=== PATIENT | male | born 1945 | race Caucasian/White ===

== ENCOUNTER 2018-09-27 15:29 | Outpatient (CLI) | payer MEDICARE, BC ==
[2018-09-27 16:59] LABS: #Basophils 0.1 thou/uL (0.0-0.2); #Eosinphils 0.2 thou/uL (0.0-0.7); #Lymphocytes 2.8 thou/uL (1.20-3.40); #Monocytes 0.7 thou/uL (0.11-0.59); #Neutrophils 5.6 thou/uL (1.40-6.50); %Basophils 0.6 % (0.0-1.0); %Eosinophils 2.3 % (0.0-10.0); %Lymphocytes 30.3 % (21.0-51.0); %Monocytes 7.1 % (0.0-10.0); %Neutrophils 59.7 % (42.0-75.0); Hemoglobin 12.6 g/dL (14.0-18.0); Mean Corpuscular HGB CONC 31.9 g/dL (32.0-36.0); Mean Corpuscular Hemoglobin 31.2 pg (27.0-31.0); Mean Corpuscular Volume 97.9 fL (78.0-98.0); Mean Platelet Volume 6.5 fL (7.4-10.4); Platelet Count 250 thou/uL (130-400); RBC Distribution Width 11.2 % (11.5-14.5); Red Blood Cell (RBC) Count 4.04 mill/uL (4.70-6.10); White Blood Cell (WBC) Count 9.3 thou/uL (4.8-10.8)
[2018-09-27 17:31] LABS: ALT (SGPT) 16 U/L (8-55); AST (SGOT) 17 U/L (5-34); Albumin 4.4 g/dL (3.4-4.8); Alkaline Phosphatase 67 U/L (40-150); Anion Gap 15 mmol/L (10-20); BUN (Urea Nitrogen) 17 mg/dL (8.4-25.7); Bilirubin, Total 0.6 mg/dL (0.2-1.2); Calc. Creatinine Clearance 0 mL/min (70-130); Calcium 9.8 mg/dL (7.8-10.44); Carbon Dioxide 24 mmol/L (23-31); Chloride 103 mmol/L (98-107); Estimated GFR-MDRD 66; Globulin 3.2 g/dL (2.4-3.5); Glucose 89 mg/dL (83-110); Potassium 3.6 mmol/L (3.5-5.1); Protein, Total 7.6 g/dL (5.8-8.1); Sodium 138 mmol/L (136-145)
== END 2018-09-27 15:30 | disposition home or self-care (01) ==
LOC: LABBT 15:29
PROVIDERS: ATTEND Internal Medicine Cardiovascular Disease
DX: Z01.812 Encounter for preprocedural laboratory examination (principal); R94.39 Abnormal result of other cardiovascular function study
CPT/HCPCS: 80053; 85025

== ENCOUNTER 2018-09-29 05:50 | Inpatient (IN) | payer MEDICARE, BC ==
[2018-09-29] MEDS ORDERED: Lidocaine 1% (PF) 30 ML VIAL ONE (06:36)
[2018-09-29] MEDS ORDERED: Heparin 0 ML ONE (06:36)
[2018-09-29] MEDS ORDERED: Midazolam HCl 2 mg/2 ml Vial ONE (07:03)
[2018-09-29] MEDS ORDERED: Fentanyl 100 MCG/2 ML VIAL ONE (07:03)
[2018-09-29] MEDS ORDERED: HYDROcodone/Acetaminophen 5/325 mg Tablet ONE (08:19)
[2018-09-29] MEDS ORDERED: Nitroglycerin 2% Ointment 1 INCH/1 GM Packet ONE (08:20)
[2018-09-29] MEDS ORDERED: Acetaminophen/Codeine 30-300mg Tablet PO PRN ×2 (08:44)
[2018-09-29] MEDS ORDERED: Nitroglycerin 0.4 MG TAB (25 Tab Bottle) SL PRN (08:44)
[2018-09-29] MEDS ORDERED: Sodium Chloride 0.9% 1,000 ML IV SCH (08:44)
[2018-09-29] MEDS ORDERED: Nitroglycerin 2% Ointment 1 INCH/1 GM Packet TOP SCH (08:45)
[2018-09-29] MEDS ORDERED: ALPRAZolam 0.25 MG TAB PO PRN (08:47)
[2018-09-29] MEDS ORDERED: Fluticasone Propionate Nasal Spray 16 gm Bottle NASAL PRN (08:49)
[2018-09-29] MEDS ORDERED: Nitroglycerin 0.4 MG TAB 1 EACH SL PRN (08:51)
[2018-09-29] MEDS ORDERED: Ascorbic Acid 500 mg Chewable Tablet PO SCH (09:00)
[2018-09-29] MEDS ORDERED: Aspirin 81 mg Enteric Coated Tablet PO SCH (09:00)
[2018-09-29] MEDS ORDERED: Sodium Chloride 0.9% 500 ML BAG IVPB PRN (09:15)
[2018-09-29] MEDS: Lisinopril 10 MG TAB PO SCH (10:05)
[2018-09-29] MEDS ORDERED: Iopamidol 370 76% 100 ML VIAL ONE (10:26)
--- NOTE | 2018-09-29 13:19 | CON ---
DATE OF CONSULTATION: HISTORY OF PRESENT ILLNESS: This is a 72-year-old gentleman with an episode of exertional chest tightness that was followed with a stress test by Dr. Foster, it was abnormal. He was begun on Plavix; however, only took the Plavix for about 4-5 days before this was stopped by Dr. Barba. He had a history of hypertension and then felt lightheaded 1 day when he got up and otherwise has had no symptoms. PAST MEDICAL HISTORY: Includes hypertension. SOCIAL HISTORY: He is a nonsmoker. He is , and I have operated on his earlier this year with a stage III lung cancer The patient is retired from [email or web address] at age 56. He lives in [place] and plays sporadic golf, but stays busy outside. PAST SURGICAL HISTORY: Includes tonsillectomy, cataracts, and skin cancer removals. MEDICATIONS: Include, 1. Xanax 0.25 daily. 2. Lisinopril 10 once a day. 3. Atorvastatin 40 a day. 4. Protonix 40 a day. 5. Aspirin 81 a day. 6. Metoprolol ER 50 daily. 7. Vitamin supplements. ALLERGIES: TO PENICILLIN. REVIEW OF SYSTEMS: He has had no history of TIA or stroke. He has no nocturia. PHYSICAL EXAMINATION: GENERAL: He is alert and cooperative gentleman with a recorded weight of 181 pounds. VITAL SIGNS: Height 5 feet 9 inches. NECK: No carotid bruits. LUNGS: Clear to auscultation. CARDIAC: Distant heart sounds. No murmurs. ABDOMEN: Full, nontender. No aneurysm. EXTREMITIES: He has a palpable posterior tibial pulse bilaterally with no peripheral edema. Cardiac catheterization reveals a high-grade LAD lesion proximally with a smaller LAD and a larger second diagonal that maybe the preferred target site. He has a circumflex system that has about a 60% to 70% stenosis prior to 2 OM branches, and he has a mid right coronary stenosis of about 90% with some calcification in his distal right. ASSESSMENT AND PLAN: Potential targets would probably be the posterior descending artery, the OM, and either the LAD or the larger second diagonal. The patient has been off his Plavix for about 3 days and only took it for about 5 days prior to that. I have gone over the procedure, risks, complications and expectations, and informed consent has been obtained. Job ID: [id number] [facility]
[2018-09-29] MEDS ORDERED: Communication Order-Pharmacy FS SCH (13:30)
[2018-09-29] MEDS ORDERED: Atorvastatin Calcium 40 MG TAB PO SCH (21:00)
[2018-09-30] MEDS ORDERED: Clindamycin/D5W 900 MG in Premix Bag 1 BAG IVPB SCH (02:00)
[2018-09-30] MEDS: Lisinopril 10 MG TAB PO SCH (05:51)
[2018-09-30] MEDS ORDERED: Fentanyl 250 MCG/5 ML VIAL ONE (06:19)
[2018-09-30] MEDS ORDERED: Midazolam HCl 5 mg/5 ml Vial ONE (06:19)
[2018-09-30] MEDS ORDERED: Phenylephrine HCL 10 MG/ML VIAL ONE ×2 (06:41→10:56)
[2018-09-30] MEDS ORDERED: Heparin 10,000 UNITS/1 ML VIAL 30,000 UNITS in Sodium Chloride 0.9% 1,000 ML FS SCH (07:00)
[2018-09-30] MEDS ORDERED: Clindamycin/D5W 900 mg/50 ml Premix Bag ONE (07:14)
[2018-09-30] MEDS ORDERED: Levofloxacin 500 mg/D5W 100 ml Premix Bag ONE (07:14)
[2018-09-30 08:08] VITALS: BMI 26.2
[2018-09-30] MEDS ORDERED: Albumin 5% 500 ML ONE ×2 (09:49→10:16)
[2018-09-30] MEDS ORDERED: Insulin Regular 300 UNITS/3 ML VIAL ONE (10:18)
[2018-09-30 11:36] LABS: #Eosinphils 0.1 thou/uL (0.0-0.7); #Lymphocytes 1.5 thou/uL (1.20-3.40); #Monocytes 0.1 thou/uL (0.11-0.59); %Basophils 0.1 % (0.0-1.0); %Eosinophils 0.8 % (0.0-10.0); %Lymphocytes 8.6 % (21.0-51.0); %Monocytes 0.8 % (0.0-10.0); %Neutrophils 89.7 % (42.0-75.0); Hemoglobin 8.6 g/dL (14.0-18.0); Mean Corpuscular HGB CONC 35.3 g/dL (32.0-36.0); Mean Corpuscular Hemoglobin 33.7 pg (27.0-31.0); Mean Corpuscular Volume 95.5 fL (78.0-98.0); Mean Platelet Volume 6.4 fL (7.4-10.4); Platelet Count 159 thou/uL (130-400); Red Blood Cell (RBC) Count 2.55 mill/uL (4.70-6.10); White Blood Cell (WBC) Count 17.8 thou/uL (4.8-10.8)
[2018-09-30] MEDS ORDERED: Magnesium 2 GM/50 ML 2 GM in Premix Bag 1 BAG IVPB SCH (11:39)
[2018-09-30] MEDS ORDERED: Hetastarch 6% 500 ML 500 ML IVPB PRN (11:39)
[2018-09-30] MEDS ORDERED: Acetaminophen 325 MG TAB PO PRN (11:39)
[2018-09-30] MEDS ORDERED: hydrALAZINE 20 MG/ML VIAL SLOW IVP PRN (11:39)
[2018-09-30] MEDS ORDERED: Fentanyl 100 MCG/2 ML VIAL SLOW IVP PRN (11:39)
[2018-09-30] MEDS ORDERED: niCARdipine 25 MG in Sodium Chloride 0.9% 250 ML 250 ML IVPB PRN (11:39)
[2018-09-30] MEDS ORDERED: Bisacodyl 10 MG SUPP PR PRN (11:39)
[2018-09-30] MEDS ORDERED: Promethazine HCl 25 MG/ML VIAL IM PRN (11:39)
[2018-09-30] MEDS ORDERED: Bisacodyl 5 MG TAB PO PRN (11:39)
[2018-09-30] MEDS ORDERED: Phenylephrine 10 MG/NS 250 ML 250 ML IVPB PRN (11:39)
[2018-09-30] MEDS ORDERED: Mag-Al 1200 mg/1200 mg/30 ML UDCUP PO PRN (11:39)
[2018-09-30] MEDS ORDERED: DOPamine 400 MG/D5W 250 ML 250 ML IVPB PRN (11:39)
[2018-09-30] MEDS ORDERED: Nitroglycerin 50 MG/250 ML BOT 250 ML IVPB PRN (11:39)
[2018-09-30] MEDS ORDERED: Post-Op Insulin Drip Protocol IVPB ONE (11:39)
[2018-09-30 11:43] LABS: INR-International Normal Ratio 1.7; Prothrombin Time 20.1 SEC (12.0-14.7)
[2018-09-30 11:44] LABS: PTT 33.1 SEC (22.9-36.1)
[2018-09-30 11:58] LABS: Actual Bicarbonate (HCO3a) 19.8 mEq/L (22-28); Base Excess (BEa) -5.5 mEq/L (-2.0 to +3.0); CO2 Tension 37.8 mmHg (35.0-45.0); Calcium, Ionized 0.95 mmol/L (1.12-1.30); Carboxyhemoglobin (COHb) 0.4 gm% (0.0-3.0); Hemoglobin (Hb) 10.1 g/dL (14.0-18.0); O2 Tension (PaO2) 166.7 mmHg (> 70.0); Potassium - ABG Lab 3.43 mmol/L (3.70-5.30); pH, Arterial 7.34 (7.35-7.45)
[2018-09-30] MEDS ORDERED: HUMULIN R 100 UNITS in Sodium Chloride 0.9% 100 ML IVPB SCH (11:58)
[2018-09-30] MEDS ORDERED: Dextrose 50% Abboject 50 ML SYRINGE SLOW IVP PRN (11:58)
[2018-09-30] MEDS ORDERED: Dextrose 5% in Water 1,000 ML IV PRN (11:58)
[2018-09-30] MEDS ORDERED: Insulin Regular 300 UNITS/3 ML VIAL SC PRN (11:58)
[2018-09-30 11:59] LABS: Puncture Site ALINE
[2018-09-30 12:09] LABS: Hemoglobin 9.9 g/dL (14.0-18.0); Mean Corpuscular HGB CONC 35.1 g/dL (32.0-36.0); Mean Corpuscular Hemoglobin 33.9 pg (27.0-31.0); Mean Corpuscular Volume 96.8 fL (78.0-98.0); Platelet Count 205 thou/uL (130-400); RBC Distribution Width 11.4 % (11.5-14.5); Red Blood Cell (RBC) Count 2.92 mill/uL (4.70-6.10); White Blood Cell (WBC) Count 21.3 thou/uL (4.8-10.8)
[2018-09-30 12:12] LABS: INR-International Normal Ratio 1.6; PTT 32.6 SEC (22.9-36.1); Prothrombin Time 18.8 SEC (12.0-14.7)
[2018-09-30] MEDS: Lactated Ringer's 1,000 ML IV SCH (12:20)
[2018-09-30] MEDS: Ketorolac Tromethamine 30 MG/ML VIAL IVP SCH ×3 (12:20→23:29)
[2018-09-30 12:29] LABS: Anion Gap 10 mmol/L (10-20); BUN (Urea Nitrogen) 17 mg/dL (8.4-25.7); Calc. Creatinine Clearance 89 mL/min (70-130); Calcium 6.8 mg/dL (7.8-10.44); Carbon Dioxide 22 mmol/L (23-31); Chloride 109 mmol/L (98-107); Estimated GFR-MDRD 90; Glucose 140 mg/dL (83-110); Potassium 3.4 mmol/L (3.5-5.1); Sodium 138 mmol/L (136-145)
[2018-09-30 12:33] LABS: Band 15 % (5-11); Eosinophils 1 % (0-10); Lymphocytes 6 % (21-51); MDiff Complete? YES; Metamyelocyte 3 % (0-0); Monocytes 4 % (0-10); Neutrophil 70 % (42-75); Platelet Morphology Comment Appears Adequate; Polychromasia SLIGHT = 2-3 cells (100X) (0-2/hpf); Reactive Lymphocytes 1 % (0-10)
[2018-09-30] MEDS: Potassium Chloride 20 MEQ/100 ML PREMIX BAG IVPB PRN (13:19)
--- NOTE | 2018-09-30 13:36 | RAD ---
PORTABLE SUPINE CHEST: Date: 09/30/18 HISTORY: Postop sternotomy follow-up. FINDINGS/IMPRESSION: ET tube has tip just above salvador. Central line appears adequately positioned overlying the SVC. Mild cardiomegaly. Mild vascular engorgement. The lung del rosario appear clear. Postop sternotomy changes. POS: [facility]
[2018-09-30] MEDS: Clindamycin/D5W 900 MG in Premix Bag 1 BAG IVPB SCH ×2 (14:10→20:01)
[2018-09-30 14:40] LABS: Actual Bicarbonate (HCO3a) 19.8 mEq/L (22-28); Base Excess (BEa) -4.8 mEq/L (-2.0 to +3.0); CO2 Tension 34.5 mmHg (35.0-45.0); Calcium, Ionized 0.98 mmol/L (1.12-1.30); Carboxyhemoglobin (COHb) 0.3 gm% (0.0-3.0); Hemoglobin (Hb) 10.2 g/dL (14.0-18.0); O2 Tension (PaO2) 97.4 mmHg (> 70.0); Potassium - ABG Lab 3.81 mmol/L (3.70-5.30); pH, Arterial 7.38 (7.35-7.45)
[2018-09-30 14:42] LABS: ALV-art Gradient 144.675 (0-20); Puncture Site ALINE
[2018-09-30] MEDS: Ondansetron PF 4 MG/2 ML Vial IVP PRN (15:21)
[2018-09-30] MEDS ORDERED: Heparin 5,000 UNITS/ML VIAL ONE (15:41)
[2018-09-30] MEDS ORDERED: ePHEDrine 50 MG/ML VIAL ONE (15:41)
[2018-09-30] MEDS ORDERED: Lidocaine 2% PF 100 mg/5 ml Syringe ONE (15:41)
[2018-09-30] MEDS ORDERED: Rocuronium Bromide 10 MG/ML (10ML VIAL) ONE (15:41)
[2018-09-30] MEDS ORDERED: EPINEPHrine 1 MG/ML AMP ONE (15:41)
[2018-09-30] MEDS ORDERED: Aminocaproic Acid 5 GM/20 ML VIAL ONE (15:41)
[2018-09-30] MEDS ORDERED: Potassium Chloride 60 MEQ/30 ML VIAL ONE (15:41)
[2018-09-30] MEDS ORDERED: Protamine Sulfate 250 MG/25 ML VIAL ONE (15:41)
[2018-09-30] MEDS ORDERED: Cardioplegic Soln 1,000 ML BAG ONE (15:41)
[2018-09-30] MEDS ORDERED: Thrombin 5000 UNITS/5 ML VIAL ONE (15:41)
[2018-09-30] MEDS ORDERED: PROPOFOL 200 MG/20 ML VIAL ONE (15:41)
[2018-09-30] MEDS ORDERED: Calcium Chloride 1 GM/10 ML Abboject SYRINGE ONE (15:41)
[2018-09-30] MEDS ORDERED: Heparin 30,000 units/30 ml VIAL ONE (15:41)
[2018-09-30] MEDS ORDERED: Papaverine 60 MG/2 ML VIAL ONE (15:41)
[2018-09-30] MEDS ORDERED: Magnesium 5 GM/10 ML VIAL ONE (15:41)
[2018-09-30] MEDS ORDERED: Mannitol 12.5 GM/50 ML ONE (15:41)
[2018-09-30] MEDS ORDERED: Sodium Bicarb 50 MEQ/50 ML VIAL ONE (15:41)
[2018-09-30] MEDS ORDERED: PHENYLEPHRINE-NS 100 MCG/ML 10 ML SYRINGE ONE (15:41)
--- NOTE | 2018-09-30 15:43 | PRG ---
DATE OF SERVICE: 09/30/2018 SUBJECTIVE: Mr. Rivas is doing well postoperatively. He is on intravenous dopamine. He is receiving fluid. He is awake and alert. He is extubated. OBJECTIVE: VITAL SIGNS: Blood pressure is in the 100 to 110 systolic range. LUNGS: Clear. CARDIAC: Normal S1 and normal S2. ABDOMEN: Soft, nontender. EXTREMITIES: No edema. ASSESSMENT: 1. Status post bypass surgery, doing well. 2. History of hypertension. 3. Hypercholesterolemia. PLAN: 1. Aspirin. 2. Statins. 3. Beta blockers as tolerated. Job ID: [id number]
[2018-09-30] MEDS: Fentanyl 100 MCG/2 ML VIAL SLOW IVP PRN (15:48)
--- NOTE | 2018-09-30 15:52 | OP ---
DATE OF PROCEDURE: 09/30/2018 PREOPERATIVE DIAGNOSIS: Coronary artery disease. PROCEDURE PERFORMED: Coronary artery bypass graft x4, left internal mammary artery to the left anterior descending artery, saphenous vein to a 1.25 to 1.5 mm right coronary artery just past the posterior descending artery, saphenous vein good quality to a 1.0 mm obtuse margin 2 and a 1.5 mm obtuse margin 1, left internal mammary artery to a 1.25 to 1.5 mm left anterior descending artery. SANDFILL OPERATOR: Kostas Ledezma MD TRANSFUSION: Two platelet packs, one packed red cells. DESCRIPTION OF PROCEDURE: After adequate anesthesia had been obtained, the patient was prepped and draped, and Dr. Ledezma did an endovascular vein harvest of the left leg while I performed a median sternotomy. Left internal mammary artery was harvested and the patient was heparinized. Mammary was divided distally, passed posterior to the thymus gland, and the aorta and right atrium were cannulated. Cardiopulmonary bypass was begun. Vessels were inspected for grafting. The aorta was cross-clamped and after a liter of cold blood cardioplegia. The right coronary artery was palpated and examined distally and would not compress with a pickup suggesting severe disease. The PDA was too small to open and so the right coronary artery was opened just past the PDA, extended just to the PDA and a saphenous vein anastomosis completed here. Following this, the circumflex system was examined and the vessel was chosen to be opened; however, was very small and after anastomosis here, a 1 mm probe was all that would pass. Further search revealed an adjacent OM that was opened and was a better quality vessel at 1.5 to 2 mm and another saphenous vein end-to-side anastomosis completed here. The first vein graft to the OM was then anastomosed to the side of the vein graft to the second obtuse marginal, anastomosed. The CHANG was then anastomosed to the LAD. Following which, the cross-clamp was removed and the partial occluding clamp placed and two vein anastomosis performed on the aortic root and marked with rings. Proximal and distal anastomosis were hemostatic. The patient was then weaned from cardiopulmonary bypass. Cannula was removed and the aortic cannulation secured with a Prolene. After protamine administration, there was still significant bleeding and a platelet pack was given. Mediastinal and left pleural drain was placed, following which there was still excessive bleeding, and as best I could examine, I could not find any bleeding from suture lines just blood accumulating. Sternum was then closed with #7 interrupted wire using vancomycin paste on the sternal edges, platelet rich blood and platelet poor plasma while a second platelet pack was given. Subcutaneous tissue and skin were closed in layers. The patient's lungs were fairly hyperinflated, and the patient is to be taken to the ICU in guarded condition. Job ID: [id number]
[2018-09-30 18:06] LABS: Potassium 4.1 mmol/L (3.5-5.1)
[2018-09-30] MEDS: HYDROcodone/Acetaminophen 5/325 mg Tablet PO PRN (20:05)
[2018-09-30] MEDS ORDERED: Famotidine/PF 20 mg/2ml Vial SLOW IVP SCH (21:00)
[2018-09-30 23:26] LABS: Hemoglobin 8.5 g/dL (14.0-18.0)
[2018-10-01 00:30] LABS: PTT Greater than 250.0 SEC (22.9-36.1)
[2018-10-01] MEDS: HYDROcodone/Acetaminophen 5/325 mg Tablet PO PRN ×4 (00:52→15:20)
[2018-10-01] MEDS ORDERED: Protamine Sulfate 50 MG/5 ML VIAL SLOW IVP SCH (01:00)
[2018-10-01] MEDS: Lactated Ringer's 1,000 ML IV SCH (01:16)
[2018-10-01] MEDS: Clindamycin/D5W 900 MG in Premix Bag 1 BAG IVPB SCH ×2 (01:16→07:42)
[2018-10-01] MEDS: Ketorolac Tromethamine 30 MG/ML VIAL IVP SCH ×3 (05:32→18:34)
[2018-10-01 06:00] LABS: #Monocytes 0.9 thou/uL (0.11-0.59); #Neutrophils 10.5 thou/uL (1.40-6.50); %Basophils 0.3 % (0.0-1.0); %Eosinophils 0.3 % (0.0-10.0); %Lymphocytes 7.7 % (21.0-51.0); %Monocytes 7.4 % (0.0-10.0); %Neutrophils 84.4 % (42.0-75.0); Hemoglobin 9.2 g/dL (14.0-18.0); Mean Corpuscular HGB CONC 34.6 g/dL (32.0-36.0); Mean Corpuscular Hemoglobin 33.5 pg (27.0-31.0); Mean Platelet Volume 6.7 fL (7.4-10.4); Platelet Count 204 thou/uL (130-400); RBC Distribution Width 11.7 % (11.5-14.5); Red Blood Cell (RBC) Count 2.74 mill/uL (4.70-6.10); White Blood Cell (WBC) Count 12.4 thou/uL (4.8-10.8)
[2018-10-01 06:20] LABS: Anion Gap 11 mmol/L (10-20); BUN (Urea Nitrogen) 18 mg/dL (8.4-25.7); Calc. Creatinine Clearance 73 mL/min (70-130); Calcium 7.1 mg/dL (7.8-10.44); Carbon Dioxide 19 mmol/L (23-31); Chloride 112 mmol/L (98-107); Estimated GFR-MDRD 72; Glucose 124 mg/dL (83-110); Potassium 3.9 mmol/L (3.5-5.1); Sodium 138 mmol/L (136-145)
[2018-10-01 07:34] LABS: INR-International Normal Ratio 1.6; PTT 37.2 SEC (22.9-36.1); Prothrombin Time 18.8 SEC (12.0-14.7)
[2018-10-01] MEDS: Fentanyl 100 MCG/2 ML VIAL SLOW IVP PRN ×3 (07:42→18:36)
[2018-10-01] MEDS: Aspirin Chewable 81 MG TAB PO SCH ×2 (08:03→08:05)
--- NOTE | 2018-10-01 08:20 | RAD ---
CHEST 1 VIEW: Date: 10/01/18 INDICATOIN: Status post open heart surgery. COMPARISON: Prior exam dated 09/30/18. FINDINGS: The patient has been intervally extubated. Mediastinal drain overlies the midline. Right-sided subcla vian central venous catheter is unchanged. Left-sided thoracostomy tube persists. No pneumothorax is evident. Cardiomegaly and pulmonary vascular congestion are similar appearing. There are small bilate ral pleural effusions. No acute osseous abnormality is evident. IMPRESSION: 1. Cardiomegaly, pulmonary vascular congestion, and small bilateral pleural effusions suggest mild C HF. 2. Interval extubation. 3. Stable right-sided subclavian central venous catheter, midline mediastinal drain, and left-sided thoracostomy tube. POS: [facility]
[2018-10-01] MEDS ORDERED: Hetastarch 6% 500 ML 0 ML ONE (09:46)
[2018-10-01] MEDS: Ondansetron PF 4 MG/2 ML Vial IVP PRN (15:11)
[2018-10-01 16:08] LABS: Actual Bicarbonate (HCO3a) 20.6 mEq/L (22-28); Base Excess (BEa) -4.2 mEq/L (-2.0 to +3.0); CO2 Tension 36.3 mmHg (35.0-45.0); Calcium, Ionized 0.99 mmol/L (1.12-1.30); Carboxyhemoglobin (COHb) 1.4 gm% (0.0-3.0); Hemoglobin (Hb) 9.2 g/dL (14.0-18.0); O2 Tension (PaO2) 49.4 mmHg (> 70.0); Potassium - ABG Lab 4.16 mmol/L (3.70-5.30); pH, Arterial 7.37 (7.35-7.45)
[2018-10-01 16:09] LABS: Puncture Site ALINE
[2018-10-01 16:10] LABS: ALV-art Gradient 161.905 (0-20)
[2018-10-01] MEDS ORDERED: Furosemide 40 MG/4 ML VIAL SLOW IVP SCH (16:15)
--- NOTE | 2018-10-01 17:06 | RAD ---
Chest one view HISTORY: Dyspnea. Hypoxia. COMPARISON: Earlier exam on the same date. FINDINGS: Cardiac silhouette is magnified and enlarged. Pulmonary vasculature remains engorged. Bibas ilar atelectasis and patchy infiltrate are similar in appearance. Mediastinum is midline with postoperative changes. Lines and tubes are unchanged in position. No evidence of pneumothorax. IMPRESSION: Stable postoperative appearance of the chest.
[2018-10-01 18:04] LABS: Hemoglobin 9.9 g/dL (14.0-18.0)
[2018-10-01] MEDS: ALPRAZolam 0.25 MG TAB PO PRN (21:45)
[2018-10-01] MEDS: Atorvastatin Calcium 40 MG TAB PO SCH (21:45)
[2018-10-02] MEDS: Ketorolac Tromethamine 30 MG/ML VIAL IVP SCH ×5 (00:07→23:54)
[2018-10-02] MEDS: ALPRAZolam 0.25 MG TAB PO PRN ×3 (02:49→21:20)
[2018-10-02] MEDS ORDERED: DOPamine 400 MG/D5W 250 ML 250 ML IVPB SCH (04:00)
[2018-10-02 04:50] LABS: #Eosinphils 0.2 thou/uL (0.0-0.7); #Lymphocytes 1.5 thou/uL (1.20-3.40); #Neutrophils 10.9 thou/uL (1.40-6.50); %Basophils 0.3 % (0.0-1.0); %Eosinophils 1.2 % (0.0-10.0); %Lymphocytes 10.8 % (21.0-51.0); %Monocytes 7.7 % (0.0-10.0); Hemoglobin 9.5 g/dL (14.0-18.0); Mean Corpuscular HGB CONC 34.6 g/dL (32.0-36.0); Mean Corpuscular Hemoglobin 33.2 pg (27.0-31.0); Mean Corpuscular Volume 95.9 fL (78.0-98.0); Mean Platelet Volume 6.5 fL (7.4-10.4); Platelet Count 144 thou/uL (130-400); RBC Distribution Width 12.9 % (11.5-14.5); Red Blood Cell (RBC) Count 2.85 mill/uL (4.70-6.10); White Blood Cell (WBC) Count 13.6 thou/uL (4.8-10.8)
[2018-10-02 05:08] LABS: Anion Gap 10 mmol/L (10-20); BUN (Urea Nitrogen) 20 mg/dL (8.4-25.7); Calc. Creatinine Clearance 0 mL/min (70-130); Calcium 7.8 mg/dL (7.8-10.44); Carbon Dioxide 22 mmol/L (23-31); Chloride 109 mmol/L (98-107); Estimated GFR-MDRD 74; Glucose 122 mg/dL (83-110); Potassium 3.8 mmol/L (3.5-5.1); Sodium 137 mmol/L (136-145)
[2018-10-02] MEDS: Potassium Chloride 20 MEQ/100 ML PREMIX BAG IVPB PRN (06:42)
[2018-10-02] MEDS: HYDROcodone/Acetaminophen 5/325 mg Tablet PO PRN ×3 (08:04→21:19)
[2018-10-02] MEDS: Aspirin Chewable 81 MG TAB PO SCH (08:05)
[2018-10-02] MEDS ORDERED: Metolazone 5 MG TAB PO SCH (10:00)
[2018-10-02] MEDS ORDERED: Furosemide 40 MG/4 ML VIAL SLOW IVP SCH (10:00)
--- NOTE | 2018-10-02 10:37 | RAD ---
CHEST 1 VIEW: Date: 10/02/18 INDICATION: Status post open heart surgery. COMPARISON: Prior exam dated 10/01/18. FINDINGS: Cardiac silhouette remains enlarged. There is worsening pulmonary vascular congestion and bilateral p erihilar edema. There are small bilateral pleural effusions which are stable. Left-sided thoracostomy tube, right subclavian central venous catheter, and mediastinal drain are similar appearing. No pneu mothorax is evident. IMPRESSION: Worsening pulmonary vascular congestion and perihilar edema. POS: [facility]
[2018-10-02] MEDS: Guaifenesin DM 100-10/5 ML UDCUP PO PRN ×2 (12:21→21:19)
[2018-10-02] MEDS: Atorvastatin Calcium 40 MG TAB PO SCH (21:18)
[2018-10-03 04:34] LABS: #Eosinphils 0.3 thou/uL (0.0-0.7); #Lymphocytes 1.3 thou/uL (1.20-3.40); #Monocytes 0.9 thou/uL (0.11-0.59); #Neutrophils 9.9 thou/uL (1.40-6.50); %Basophils 0.3 % (0.0-1.0); %Eosinophils 2.3 % (0.0-10.0); %Lymphocytes 10.6 % (21.0-51.0); %Monocytes 6.8 % (0.0-10.0); Hemoglobin 9.3 g/dL (14.0-18.0); Mean Corpuscular HGB CONC 34.1 g/dL (32.0-36.0); Mean Corpuscular Hemoglobin 33.1 pg (27.0-31.0); Platelet Count 166 thou/uL (130-400); RBC Distribution Width 12.9 % (11.5-14.5); White Blood Cell (WBC) Count 12.4 thou/uL (4.8-10.8)
[2018-10-03 04:49] LABS: Anion Gap 11 mmol/L (10-20); BUN (Urea Nitrogen) 26 mg/dL (8.4-25.7); Calc. Creatinine Clearance 70 mL/min (70-130); Calcium 8.2 mg/dL (7.8-10.44); Carbon Dioxide 25 mmol/L (23-31); Chloride 105 mmol/L (98-107); Estimated GFR-MDRD 61; Glucose 114 mg/dL (83-110); Potassium 3.7 mmol/L (3.5-5.1); Sodium 137 mmol/L (136-145)
[2018-10-03] MEDS: Ketorolac Tromethamine 30 MG/ML VIAL IVP SCH (06:35)
[2018-10-03] MEDS ORDERED: Mineral Oil ENEMA PR PRN (06:40)
[2018-10-03] MEDS ORDERED: Fentanyl 100 MCG/2 ML VIAL SLOW IVP PRN (06:40)
[2018-10-03] MEDS ORDERED: Mag-Al 1200 mg/1200 mg/30 ML UDCUP PO PRN (06:40)
[2018-10-03] MEDS ORDERED: Nitroglycerin 0.4 MG TAB (25 Tab Bottle) SL PRN (06:40)
[2018-10-03] MEDS ORDERED: Ondansetron PF 4 MG/2 ML Vial IVP PRN (06:40)
[2018-10-03] MEDS ORDERED: Acetaminophen 325 MG TAB PO PRN (06:40)
[2018-10-03] MEDS ORDERED: Bisacodyl 5 MG TAB PO PRN (06:40)
[2018-10-03] MEDS ORDERED: Bisacodyl 10 MG SUPP PR PRN (06:40)
[2018-10-03] MEDS ORDERED: Guaifenesin DM 100-10/5 ML UDCUP PO PRN (06:40)
--- NOTE | 2018-10-03 07:49 | RAD ---
EXAM: Single view of the chest HISTORY: Status post open heart surgery COMPARISON: 10/02/2018 FINDINGS: Single view of the chest shows an enlarged but stable cardiomediastinal silhouette. The pa tient is status post CABG. The lines and tubes are unchanged in position. There is a moderate right pleural effusion. Developing airspace opacity projects over the right upper lobe. The bones are unremarkable. IMPRESSION: 1. Right pleural effusion 2. Developing right upper lobe infiltrate
--- NOTE | 2018-10-03 09:00 | EKG ---
Test Reason : POST CABG Blood Pressure : / mmHG Vent. Rate : 074 BPM Atrial Rate : 074 BPM P-R Int : 182 ms QRS Dur : 126 ms QT Int : 484 ms P-R-T Axes : 071 062 045 degrees QTc Int : 537 ms Normal sinus rhythm Right bundle branch block Abnormal ECG When compared with ECG of 29-MAR-2007 07:23, Right bundle branch block is now Present Confirmed by DR. Chester CARPIO ([id number]) on 10/03/2018 8:59:24 AM Referred By: ZACKERY Confirmed By:DR. Chester CARPIO
[2018-10-03] MEDS ORDERED: Hetastarch 6% 500 ML 0 ML ONE (09:02)
[2018-10-03] MEDS ORDERED: D5 1/2 NS w/20 mEq KCL 0 ML ONE (09:04)
[2018-10-03] MEDS: Aspirin 325 mg Enteric Coated Tablet PO SCH (09:16)
[2018-10-03] MEDS: Furosemide 40 MG TAB PO SCH (09:17)
[2018-10-03] MEDS: Polyethylene Glycol 3350 17 GM Packet PO SCH (09:17)
--- NOTE | 2018-10-03 09:55 | PRG ---
DATE OF SERVICE: 10/03/2018 SUBJECTIVE: Mr. Rivas is doing well. He is awake and alert. He is awaiting a bed out on telemetry. OBJECTIVE: VITAL SIGNS: Blood pressure 105/58, pulse is 76 and sinus. LUNGS: Clear. CARDIAC: Normal S1. Normal S2. ASSESSMENT: 1. Three-vessel coronary artery disease, status post bypass surgery. 2. History of hypertension. PLAN: 1. Continue supportive care including aspirin, oral furosemide. 2. Resume statins. 3. Cardiac rehab. Job ID: [id number]
[2018-10-03] MEDS: HYDROcodone/Acetaminophen 5/325 mg Tablet PO PRN (15:22)
[2018-10-03] MEDS: ALPRAZolam 0.25 MG TAB PO PRN (21:04)
[2018-10-03] MEDS: Atorvastatin Calcium 40 MG TAB PO SCH (21:04)
[2018-10-04] MEDS: ALPRAZolam 0.25 MG TAB PO PRN ×2 (03:17→22:46)
[2018-10-04] MEDS: Aspirin 325 mg Enteric Coated Tablet PO SCH (09:16)
[2018-10-04] MEDS: Polyethylene Glycol 3350 17 GM Packet PO SCH (09:17)
[2018-10-04] MEDS: Furosemide 40 MG TAB PO SCH (09:17)
--- NOTE | 2018-10-04 09:43 | PRG ---
DATE OF SERVICE: 10/04/2018 SUBJECTIVE: Mr. Rivas is sitting up in a chair, feels fine. No angina. OBJECTIVE: VITAL SIGNS: His blood pressure is 117/62, heart rate 76. LUNGS: Clear. CARDIAC: Normal S1, normal S2. ABDOMEN: Soft, nontender. ASSESSMENT: 1. Status post bypass surgery. 2. History of hypertension. 3. History of hypercholesterolemia. PLAN: 1. He is on the statin, furosemide, and aspirin. 2. Start low-dose beta-blockers tomorrow. Job ID: [id number]
[2018-10-04 14:37] LABS: Actual Bicarbonate (HCO3a) 23.4 mEq/L (22-28); Analyzer IN Cardio OR; Base Excess (BEa) -2.7 mEq/L (-2.0 to +3.0); CO2 Tension 47.9 mmHg (35.0-45.0); Calcium, Ionized 0.94 mmol/L (1.12-1.30); Carboxyhemoglobin (COHb) 0.8 gm% (0.0-3.0); Hemoglobin (Hb) 6.7 g/dL (14.0-18.0); O2 Tension (PaO2) 415.9 mmHg (> 70.0); Potassium - ABG Lab 4.34 mmol/L (3.70-5.30); pH, Arterial 7.31 (7.35-7.45)
[2018-10-04 14:37] LABS: Analyzer IN Cardio OR; Base Excess (BEa) -1.8 mEq/L (-2.0 to +3.0); CO2 Tension 45.9 mmHg (35.0-45.0); Calcium, Ionized 0.98 mmol/L (1.12-1.30); Carboxyhemoglobin (COHb) 0.4 gm% (0.0-3.0); Hemoglobin (Hb) 7.7 g/dL (14.0-18.0); Potassium - ABG Lab 4.68 mmol/L (3.70-5.30); pH, Arterial 7.34 (7.35-7.45)
[2018-10-04 14:37] LABS: Actual Bicarbonate (HCO3a) 20.6 mEq/L (22-28); Analyzer IN Cardio OR; Base Excess (BEa) -3.8 mEq/L (-2.0 to +3.0); CO2 Tension 34.1 mmHg (35.0-45.0); Calcium, Ionized 0.91 mmol/L (1.12-1.30); Carboxyhemoglobin (COHb) 0.3 gm% (0.0-3.0); Hemoglobin (Hb) 8.9 g/dL (14.0-18.0); Potassium - ABG Lab 3.42 mmol/L (3.70-5.30)
[2018-10-04 14:38] LABS: O2 Tension (PaO2) 618.1 mmHg (> 70.0); Puncture Site ALINE
[2018-10-04 14:39] LABS: Puncture Site ALINE
[2018-10-04 14:39] LABS: O2 Tension (PaO2) 525.9 mmHg (> 70.0); Puncture Site ALINE
[2018-10-04] MEDS: HYDROcodone/Acetaminophen 5/325 mg Tablet PO PRN (15:23)
[2018-10-04] MEDS ORDERED: Pharmacy to Dose 1 EACH VANCOMYCIN IVPB PRN (16:05)
[2018-10-04] MEDS ORDERED: Aztreonam 2 GM in Sodium Chloride 0.9% 100 ML IVPB SCH (16:15)
[2018-10-04] MEDS ORDERED: Vancomycin HCl 1.5 GM in Sodium Chloride 0.9% 250 ML 300 ML IVPB SCH (16:15)
--- NOTE | 2018-10-04 16:31 | CON ---
DATE OF CONSULTATION: 10/04/2018 SERVICE: Pulmonary Medicine. REASON FOR CONSULTATION: Pleural effusion. HISTORY OF PRESENT ILLNESS: The patient is a 72-year-old white male with past medical history significant for coronary artery disease. He had a cardiac catheterization that identified 3-vessel disease. He was subsequently referred for coronary artery bypass graft. He underwent this intervention on September 30, 2018. He is currently postop day number 4 from that procedure. His chest tube was removed today, but he had a new onset of a pleural effusion on the right as well as a new pulmonary infiltrate that was not previously identified. He did not have any fevers or chills overnight. He is not coughing up any pus or blood. He denies any nausea or vomiting. Otherwise, he is returning to his usual state of health. PAST MEDICAL HISTORY: 1. Coronary artery disease. 2. Hypertension. 3. Gastroesophageal reflux disease.. PAST SURGICAL HISTORY: 1. Coronary artery bypass graft, postop day 4. 2. Tonsillectomy. 3. Cataract surgery. 4. Skin excisions for cancer removal. ALLERGIES: PENICILLIN. MEDICATIONS: List of his inpatient medications was reviewed. No specific med. No specific updates were made at this time other than initiating antibiotics directed and aspiration related organisms. FAMILY HISTORY: Noncontributory. SOCIAL HISTORY: Negative for alcohol, tobacco, or illicit drug use. He is retired from [employer]. He has no known lung problems. REVIEW OF SYSTEMS: General; head, eyes, ears, nose, and throat; cardiovascular, respiratory, GI, , musculoskeletal, neurologic, and skin are negative, except as mentioned in the HPI. PHYSICAL EXAMINATION: VITAL SIGNS: Afebrile, pulse 90, blood pressure 137/69, respirations 19, saturation 100% on 2 L nasal cannula. GENERAL: The patient is awake and alert, in no apparent distress. LUNGS: Decent air entry. There is decreased air to the right base. No wheezing is appreciated. There is no prolonged expiratory phase. HEART: Normal rate. Regular. ABDOMEN: Soft, nontender, and nondistended. Bowel sounds are positive. MUSCULOSKELETAL: No cyanosis or clubbing. No pitting in the bilateral lower extremities. NEUROLOGICAL: Grossly nonfocal. LABORATORY DATA: WBC 12.4 and downtrending, hemoglobin 9.3, platelets 166,000. Neutrophil count is stable at 80%. INR 1.6. Creatinine 1.18. Basic metabolic profile is otherwise unremarkable. IMAGING STUDIES: Chest x-ray demonstrates a new presentation of a right lower lobe effusion and an increasing infiltrate in the right upper lobe. This was not present on the prior evaluation. On this morning's chest x-ray, he had a mediastinal drain, a left chest tube, and a right subclavian central venous catheter in good position. Sternotomy wires are in good position. The cardiac silhouette is quite generous. ASSESSMENT: 1. Acute hypoxic respiratory failure. 2. Healthcare-associated pneumonia. 3. Pleural effusion on the right, new onset. 4. Coronary artery bypass graft, postoperative day 4. DISCUSSION AND PLAN: I will go ahead and initiate antibiotics directed, healthcare-associated organisms. We will proceed with a thoracentesis for both diagnostic and therapeutic purposes. I am concerned that this could represent a very early infectious process. If that proves to not be the case, we can rapidly deescalate antibiotics through time. Because of his penicillin allergy, we will need to give him some aztreonam. I will continue to follow him very closely while the patient remains inhouse. 70 minutes have been devoted to this patient in various activities. I personally reviewed all imaging studies and laboratory data noted within this document. For fifty percent of this time, I was interacting with the patient at the bedside or coordinating care with the care team. For the remainder of the time I was immediately available to the patient in the hospital unit. Job ID: [id number] [facility]
[2018-10-04 17:27] LABS: BF Color Red; Body Fluid Source Pleural Fluid; Clarity Cloudy/Turbid (Clear); RBC Background Count 0.005; RBC Count-Automated 134000 /cumm; Tube # EDTA; WBC/NonHematic-Auto 788 /cumm
[2018-10-04] MEDS: Vancomycin HCl 750 MG in Sodium Chloride 0.9% 250 ML 250 ML IVPB SCH (17:27)
[2018-10-04 17:44] LABS: Pleural Fluid, Protein 2.4 g/dL
[2018-10-04 18:23] LABS: BF Segmented Neutrophils 51 %; Cell Count Non Hematic 43 %; Lymphocytes 6 %
--- NOTE | 2018-10-04 19:47 | OP ---
DATE OF PROCEDURE: 10/04/2018 SERVICE: Pulmonary Medicine. PROCEDURE PERFORMED: Right-sided pleural drainage with catheter insertion under ultrasound guidance. CONSENT: Risks and benefits of the procedure were discussed and explained to the patient. All questions were answered and alternative options explained. STAFF PHYSICIAN: Praful Rehman MD MEDICATIONS USED: Lidocaine 1% without epinephrine, 8 mL. PREOPERATIVE DIAGNOSES: 1. Healthcare-associated pneumonia. 2. Pleural effusion. POSTPROCEDURE DIAGNOSES: 1. Healthcare-associated pneumonia. 2. Pleural effusion. DESCRIPTION OF PROCEDURE: Time-out was performed by the procedure team and the patient. The patient was positively identified using name and date of . The procedure site was marked. Vital sign monitoring was accomplished by noninvasive hemodynamic monitoring, pulse oximetry, and telemetry. In the seated position, the posterior hemithorax was examined using ultrasound probe. The diaphragm and pleural fluid were easily identified. The skin was prepped and draped in sterile fashion and anesthetized with 1% lidocaine without epinephrine. A finder needle was inserted in the pleural space with return of serosanguineous pleural fluid. A pleural drainage catheter was inserted in the same location. A total quantity of 800 mL of pleural fluid was withdrawn by syringe pump technique. A sample was sent for analysis. Evacuation of fluid was terminated because the fluid stopped coming. At the end of the procedure, estimated pleural pressures, measured by manometry, were 10 cm of water pressure. The intact catheter was withdrawn on exhalation, and a sterile dressing was applied. The patient has stable vitals throughout the entire procedure without immediate complication. Of note, postprocedure ultrasound demonstrated near-complete evacuation of the pleural space. ESTIMATED BLOOD LOSS: 2 mL. COMPLICATIONS: None. Job ID: [id number]
[2018-10-04] MEDS ORDERED: Vancomycin HCl 1 GM in Premix Bag 1 BAG IVPB SCH (21:00)
[2018-10-04] MEDS: Aztreonam 2 GM in Sodium Chloride 0.9% 100 ML IVPB SCH (21:20)
[2018-10-04] MEDS: Atorvastatin Calcium 40 MG TAB PO SCH (21:20)
[2018-10-05] MEDS: Vancomycin HCl 750 MG in Sodium Chloride 0.9% 250 ML 250 ML IVPB SCH ×2 (05:04→17:42)
[2018-10-05] MEDS: Polyethylene Glycol 3350 17 GM Packet PO SCH (09:53)
[2018-10-05] MEDS: Aspirin 325 mg Enteric Coated Tablet PO SCH (09:53)
[2018-10-05] MEDS: Furosemide 40 MG TAB PO SCH (09:53)
[2018-10-05] MEDS: Aztreonam 2 GM in Sodium Chloride 0.9% 100 ML IVPB SCH ×2 (09:53→21:19)
[2018-10-05] MEDS ORDERED: predniSONE 20 MG TAB PO SCH (10:15)
--- NOTE | 2018-10-05 15:31 | PRG ---
DATE OF SERVICE: 10/05/2018 SERVICE: Pulmonary Medicine. INTERVAL HISTORY: The patient is doing well overnight. He has a little soreness at the site where the catheter was placed, but did not have any significant pleuritic chest discomfort overnight. He denies any current fevers, cough, nausea, or vomiting. Otherwise, there has been no interval change to his condition. PHYSICAL EXAMINATION: VITAL SIGNS: Afebrile, pulse 78, blood pressure 109/62, respirations 21, saturation 95% on 2 L nasal cannula. GENERAL: The patient is awake and alert, in no apparent distress. LUNGS: Very good air entry with no prolonged expiratory phase or wheezing present. HEART: Normal rate, regular. ABDOMEN: Soft, nontender, and nondistended. Bowel sounds are positive. MUSCULOSKELETAL: No cyanosis or clubbing. There is no pitting in the bilateral lower extremities. NEUROLOGIC: Grossly nonfocal. LABORATORY DATA: The pleural fluid has a pH of 7.7 and a glucose of 124. The LDH is consistent with an exudate of effusion. It is neutrophil predominant. These were all consistent with an uncomplicated parapneumonic pleural effusion. Blood cultures x2 are negative. Body fluid cultures negative to date. Gram stain is unremarkable. Cytology is currently pending. ASSESSMENT: 1. Acute hypoxic respiratory failure. 2. Healthcare-associated pneumonia. 3. Noncomplicated parapneumonic pleural effusion on the right, status post thoracentesis with near-complete evacuation of this space. 4. Coronary artery bypass graft, postoperative day 5. DISCUSSION AND PLAN: The patient is stable for transition out of the ICU to the floor. We will continue our antibiotics for the time being. I will give him a brief course of steroids to see if we can stem the inflammatory changes that may happen in this space. Pulmonary Critical Care will follow along. I will repeat a chest x-ray in the morning. I will also repeat some basic laboratories to make certain that white count is resolving. Job ID: [id number]
[2018-10-05 16:22] LABS: Vancomycin, Trough 4.9 ug/mL
[2018-10-05] MEDS: Vancomycin HCl 1.5 GM in Sodium Chloride 0.9% 250 ML 300 ML IVPB SCH (18:22)
[2018-10-05] MEDS: Atorvastatin Calcium 40 MG TAB PO SCH (21:19)
[2018-10-05] MEDS: ALPRAZolam 0.25 MG TAB PO PRN (21:21)
[2018-10-06] MEDS: Vancomycin HCl 1.5 GM in Sodium Chloride 0.9% 250 ML 300 ML IVPB SCH ×2 (05:33→18:29)
[2018-10-06 05:38] LABS: #Eosinphils 0.1 thou/uL (0.0-0.7); #Lymphocytes 1.3 thou/uL (1.20-3.40); #Monocytes 1.2 thou/uL (0.11-0.59); #Neutrophils 10.7 thou/uL (1.40-6.50); %Basophils 0.1 % (0.0-1.0); %Eosinophils 0.6 % (0.0-10.0); %Lymphocytes 10.1 % (21.0-51.0); %Neutrophils 80.3 % (42.0-75.0); Hemoglobin 10.2 g/dL (14.0-18.0); Mean Corpuscular HGB CONC 34.3 g/dL (32.0-36.0); Mean Corpuscular Volume 96.2 fL (78.0-98.0); Mean Platelet Volume 6.3 fL (7.4-10.4); Platelet Count 257 thou/uL (130-400); RBC Distribution Width 12.4 % (11.5-14.5); Red Blood Cell (RBC) Count 3.08 mill/uL (4.70-6.10); White Blood Cell (WBC) Count 13.3 thou/uL (4.8-10.8)
[2018-10-06 05:56] LABS: Anion Gap 13 mmol/L (10-20); BUN (Urea Nitrogen) 21 mg/dL (8.4-25.7); Calc. Creatinine Clearance 85 mL/min (70-130); Calcium 8.8 mg/dL (7.8-10.44); Carbon Dioxide 27 mmol/L (23-31); Chloride 101 mmol/L (98-107); Estimated GFR-MDRD 82; Glucose 117 mg/dL (83-110); Phosphorus 4.4 mg/dL (2.3-4.7); Potassium 3.9 mmol/L (3.5-5.1); Sodium 137 mmol/L (136-145)
[2018-10-06] MEDS: Aspirin 325 mg Enteric Coated Tablet PO SCH (08:47)
[2018-10-06] MEDS: Polyethylene Glycol 3350 17 GM Packet PO SCH (08:47)
[2018-10-06] MEDS: Furosemide 40 MG TAB PO SCH (08:47)
[2018-10-06] MEDS: predniSONE 20 MG TAB PO SCH (08:47)
[2018-10-06] MEDS: Aztreonam 2 GM in Sodium Chloride 0.9% 100 ML IVPB SCH ×2 (08:48→20:29)
--- NOTE | 2018-10-06 09:54 | PRG ---
DATE OF SERVICE: 10/06/2018 SUBJECTIVE: Mr. Rivas has been up in the wheeler, walking, feels well. OBJECTIVE: GENERAL: He is breathing well. No shortness of breath. VITAL SIGNS: Blood pressure 138/71, pulse 80. LUNGS: Clear. CARDIAC: Normal S1. Normal S2. ABDOMEN: Soft and nontender. ASSESSMENT: 1. Status post bypass surgery. 2. History of hypertension. PLAN: 1. He is on aspirin. 2. Statin. 3. Metoprolol. 4. Resume lisinopril tomorrow. Job ID: [id number]
--- NOTE | 2018-10-06 11:18 | RAD ---
TWO VIEWS CHEST: Comparison: 10-03-18 History: Pleural effusion and infiltrate. FINDINGS: Two views of the chest shows an enlarged but stable cardiomediastinal silhouette. The patient is stat us post CABG. There are small bilateral pleural effusions with adjacent atelectasis. The central veno us catheter is unchanged in position. IMPRESSION: Small bilateral pleural effusions with adjacent atelectasis. POS: [facility]
--- NOTE | 2018-10-06 16:18 | PRG ---
DATE OF SERVICE: 10/06/2018 SERVICE: Pulmonary Medicine. INTERVAL HISTORY: The patient is doing really well from Respiratory standpoint. He has no complaints of chest discomfort, nausea, or vomiting. Otherwise, there has been no interval change to his condition. The soreness in his chest went away. I had a repeat chest x-ray today. I have reviewed the results below. PHYSICAL EXAMINATION: VITAL SIGNS: Afebrile, pulse 83, blood pressure 132/63, respirations 20, saturation 91% on room air. GENERAL: The patient is awake and alert, in no apparent distress. LUNGS: Very good air entry. I do not hear any wheezing or crackles. Rhonchi are present on the right, but clear with cough. HEART: Normal rate and regular. ABDOMEN: Soft, nontender, nondistended. Bowel sounds are positive. MUSCULOSKELETAL: No cyanosis or clubbing. No pitting in the bilateral lower extremities. NEUROLOGIC: Grossly nonfocal. LABORATORY DATA: WBC 13.3, hemoglobin 10.2, platelets 257,000. Basic metabolic profile, magnesium and phosphorus are all within the normal limits. Body fluid is consistent with an exudate, which is neutrophil predominant. Body fluid culture, blood cultures x2 are negative to date at 48 hours. IMAGING STUDIES: Chest x-ray demonstrates improved infiltrate in the right upper lung. There is a very small rim of pleural effusion/pleural thickening on the right. Subclavian central venous catheter is in good position. Cardiac silhouette is touch enlarged. The possibility of a right middle lobe infiltrate exists. ASSESSMENT: 1. Acute hypoxic respiratory failure, resolved. 2. Healthcare-associated pneumonia. 3. Parapneumonic pleural effusion, status post thoracentesis with near-complete evacuation of the space. 4. Coronary artery disease, status post coronary artery bypass graft, postoperative day 6. DISCUSSION AND PLAN: The patient is doing fine from Respiratory standpoint. If his cultures remain negative tomorrow, we can convert him over to p.o. Levaquin 750 mg p.o. daily for an additional 5 days in the outpatient setting and interrupt his vancomycin and aztreonam. He should be ready for discharge from the hospital in the morning. I will continue to follow along. He will continue mobilizing as tolerated. Job ID: [id number]
[2018-10-06 17:29] LABS: Vancomycin, Trough 17.6 ug/mL
[2018-10-06] MEDS: ALPRAZolam 0.25 MG TAB PO PRN (20:28)
[2018-10-06] MEDS: Atorvastatin Calcium 40 MG TAB PO SCH (20:29)
[2018-10-07] MEDS: Vancomycin HCl 1.5 GM in Sodium Chloride 0.9% 250 ML 300 ML IVPB SCH (05:20)
[2018-10-07 07:24] VITALS: BP 123/73; TEMP 99.1
[2018-10-07] MEDS: Furosemide 40 MG TAB PO SCH (08:11)
[2018-10-07] MEDS: Aspirin 325 mg Enteric Coated Tablet PO SCH (08:11)
[2018-10-07] MEDS: predniSONE 20 MG TAB PO SCH (08:11)
[2018-10-07] MEDS: Polyethylene Glycol 3350 17 GM Packet PO SCH (08:12)
[2018-10-07] MEDS ORDERED: Lisinopril 5 MG TAB PO SCH (09:00)
--- NOTE | 2018-10-07 09:02 | DIS ---
DATE OF ADMISSION: 09/29/2018 DATE OF DISCHARGE: 10/07/2018 HOSPITAL COURSE: The patient was admitted after catheterization by Dr. Barba showing critical coronary artery disease. He underwent coronary artery bypass grafting. He did have some perioperative bleeding requiring a transfusion of platelets and he had received Plavix within the week prior to surgery, but it was not felt safe to postpone his surgery. His grafts were to the LAD and ramus. He did develop a right-sided effusion and an infiltrate and was seen by Dr. Rehman, undergoing thoracentesis and being started on some antibiotics. He will be discharged home today to resume his home medicine of metoprolol 50 a day and lisinopril has been decreased from 10 to 5 mg a day. He will be on atorvastatin 40, aspirin 81, a 5-day course of Levaquin 750 a day, and tramadol for pain. Discharge and followup instructions were given. Job ID: [id number]
== END 2018-10-07 09:47 | disposition home or self-care (01) | DRG 233 ==
LOC: CCL 05:50 → 2NO 09:02 → CCU 09-30 07:20 → 2NO 10-05 13:28
PROVIDERS: ADMIT Internal Medicine Cardiovascular Disease; ATTEND Internal Medicine Cardiovascular Disease
PROC: 4A023N7 Measurement of Cardiac Sampling and Pressure, Left Heart, Percutaneous Approach (ICD-10-PCS; 2018-09-29)
PROC: B2111ZZ Fluoroscopy of Multiple Coronary Arteries using Low Osmolar Contrast (ICD-10-PCS; 2018-09-29)
PROC: 021109W Bypass Coronary Artery, Two Arteries from Aorta with Autologous Venous Tissue, Open Approach (ICD-10-PCS; principal; 2018-09-30)
PROC: 02110Z9 Bypass Coronary Artery, Two Arteries from Left Internal Mammary, Open Approach (ICD-10-PCS; 2018-09-30)
PROC: 06BQ4ZZ Excision of Left Saphenous Vein, Percutaneous Endoscopic Approach (ICD-10-PCS; 2018-09-30)
PROC: 5A1221Z Performance of Cardiac Output, Continuous (ICD-10-PCS; 2018-09-30)
PROC: 30233R1 Transfusion of Nonautologous Platelets into Peripheral Vein, Percutaneous Approach (ICD-10-PCS; 2018-09-30)
PROC: 30233N1 Transfusion of Nonautologous Red Blood Cells into Peripheral Vein, Percutaneous Approach (ICD-10-PCS; 2018-09-30)
PROC: 0B9N30Z Drainage of Right Pleura with Drainage Device, Percutaneous Approach (ICD-10-PCS; 2018-10-04)
DX: I25.10 Atherosclerotic heart disease of native coronary artery without angina pectoris (principal); J18.9 Pneumonia, unspecified organism; J96.01 Acute respiratory failure with hypoxia; J90 Pleural effusion, not elsewhere classified; I10 Essential (primary) hypertension; E78.00 Pure hypercholesterolemia, unspecified; K21.9 Gastro-esophageal reflux disease without esophagitis; Z90.89 Acquired absence of other organs; Z98.41 Cataract extraction status, right eye; Z98.42 Cataract extraction status, left eye; Z85.828 Personal history of other malignant neoplasm of skin; Z79.82 Long term (current) use of aspirin; Z88.0 Allergy status to penicillin
CPT/HCPCS: 36415; 36416; 36430; 71045; 71046; 76942; 80048; 80053; 80202; 82805; 82945; 82947; 83615; 83735; 83986; 84100; 84157; 85025; 85060; 85384; 85610; 85730; 86850; 86900; 86901; 87040; 87070; 87116; 87205; 87206; 88112; 88305; 89051; 93005; 93010; 93458; 93798; 94002; 94150; 94640; 99152; C1769; J0171; J1265; J1642; J1644; J1815; J1885; J1940; J1956; J2001; J2150; J2250; J2370; J2405; J2440; J2704; J2720; J3010; J3370; J3475; J3480; J3490; J7050; J7512; J7620; P9016; P9035; P9045; Q9967; S0017; S0028

== ENCOUNTER 2018-10-16 22:13 | Observation (INO) | payer MEDICARE, BC ==
[2018-10-17 01:44] VITALS: BMI 25.2
[2018-10-17] MEDS ORDERED: Nitroglycerin 0.4 MG TAB (25 Tab Bottle) SL PRN ×2 (01:50→11:20)
[2018-10-17] MEDS ORDERED: Acetaminophen 325 MG TAB PO PRN (02:13)
[2018-10-17] MEDS ORDERED: ALPRAZolam 0.25 MG TAB PO SCH ×2 (02:15→21:00)
[2018-10-17] MEDS ORDERED: Atorvastatin Calcium 40 MG TAB PO SCH ×2 (02:15→21:00)
--- NOTE | 2018-10-17 04:38 | HP ---
CHIEF COMPLAINT: Chest pain. HISTORY OF PRESENT ILLNESS: This patient is a 72-year-old male, who was admitted here on 09/29/2018. The patient reports he had some chest pressure with exertion, had a stress test by Dr. Cornejo, subsequently was referred to Dr. Barba. At which time, he had a heart catheterization. Heart catheterization revealed some coronary artery disease for which the patient then was seen by Dr. Watt. He then underwent a coronary artery bypass graft x4 with CHANG to the LAD, saphenous vein graft to the RCA just past the PDA, saphenous vein graft to the obtuse marginal x2. The patient had subsequent pleural effusion with thoracentesis by Dr. Rehman. He was subsequently discharged to home on 10/07/2018. The patient said he was actually doing well; however, today he had the onset of chest pain this evening around 8 o'clock, it was central, but had some pain in his left arm as well. He had no shortness of breath. No diaphoresis. No nausea or vomiting. He stated the pain was about a 4/10. He presented to the emergency department in [place]. There, the patient underwent a CTA, which showed no pulmonary emboli. Small pleural effusion and mild emphysema, but no other acute findings. His troponins were negative. He had some EKGs report baseline, but some concern for some nondiagnostic ST-segment elevation in the inferior leads. The patient was given aspirin and reported that his pain faded. He did not receive nitroglycerin nor did he take any of his own. He was transferred to this facility and was pain free on arrival. He continues to be pain free now. REVIEW OF SYSTEMS: All other systems reviewed. All pertinent positives and negatives noted in history of present illness. PAST MEDICAL HISTORY: Hypertension and coronary artery disease. PAST SURGICAL HISTORY: Coronary artery bypass graft as above, tonsillectomy, skin cancer removal, cataract-ectomy with extraocular lens implants. FAMILY HISTORY: Mother had heart disease and cancer. Father had heart disease. SOCIAL HISTORY: The patient is a nonsmoker, social occasional alcohol drinker. No drugs. He is . He is full code. His would be his surrogate decision maker. ALLERGIES: PENICILLIN. CURRENT MEDICATIONS: 1. Nitroglycerin p.r.n. 2. Metoprolol 50 mg at bedtime. 3. Aspirin 81 mg daily. 4. Protonix 40 mg daily. 5. Atorvastatin 40 mg at bedtime. 6. Xanax 0.25 at bedtime p.r.n. PHYSICAL EXAMINATION: VITAL SIGNS: Temperature is 97.8, pulse 80, respirations 18, O2 saturation 96% on room air, BP 136/71. GENERAL APPEARANCE: Age-appropriate male, in no distress. Awake, alert, oriented, pleasant, cooperative. HEENT: PERRL. No acute lesions. NECK: Supple and symmetric. HEART: Regular rate and rhythm without murmurs, gallops, or rubs. Median sternotomy incision looks good. LUNGS: Clear bilaterally. No wheezes or rales. ABDOMEN: Soft, nontender, and nondistended. Positive bowel sounds. No masses. No organomegaly. EXTREMITIES: No cyanosis, clubbing, or edema. NEUROLOGICAL: The patient appears to be fully intact with normal cranial nerve function. Spontaneous movement of all extremities. PSYCH: Normal affect and behavior. LABORATORY DATA: White count 8.6, hemoglobin 11.2, platelets 548. INR 1.2. D-dimer was 3.64, PTT is 32.5. Chemistries normal with the exception of glucose of 112. Troponin 0.022, subsequently 0.013. BNP is 196. CTA is as noted above. IMPRESSION AND PLAN: 1. Chest pain following recent 4-vessel bypass graft, the patient had some nondiagnostic level ST-segment changes on his initial EKG at the outside facility in all 3 inferior leads. He does not have those on arrival here. He is completely pain free at this moment. We will continue to monitor with telemetry and continue to follow serial troponins. We will consult Dr. Watt and Dr. Barba. In the meantime, we will continue with aspirin and metoprolol. 2. Hyperlipidemia. Continue with atorvastatin. Job ID: [id number]
[2018-10-17 06:03] LABS: Troponin I 0.513 ng/mL (< 0.028)
[2018-10-17] MEDS ORDERED: Diazepam 5 MG TAB PO SCH (09:15)
[2018-10-17] MEDS ORDERED: Communication Order-Pharmacy FS SCH (09:15)
[2018-10-17] MEDS ORDERED: Lidocaine 1% (PF) 30 ML VIAL ONE (09:23)
[2018-10-17] MEDS: Aspirin 81 mg Enteric Coated Tablet PO SCH (09:25)
[2018-10-17] MEDS: Sodium Chloride 0.9% 1,000 ML IV SCH ×2 (09:54→16:35)
--- NOTE | 2018-10-17 10:13 | CON ---
DATE OF CONSULTATION: 10/17/2018 REASON FOR CONSULTATION: Chest pain and increased troponin levels. HISTORY OF PRESENT ILLNESS: Mr. Reed Rivas is a very pleasant 72-year-old gentleman. The patient presented with unstable angina and underwent cardiac catheterization and subsequent bypass surgery recently. The patient's coronary artery bypass grafting was done on 09/30/2018. The patient was bypassed x4 with internal mammary to the LAD, saphenous vein graft to the right coronary artery distribution just past the posterior descending artery, saphenous vein graft to an obtuse marginal 2, and another graft that was attached to that graft that went to the obtuse marginal 1. The patient did have calcified coronary artery disease. Initially, the plan was to try to graft the posterior descending artery, but that area was not suitable; therefore, the graft had to go just beyond the posterior descending artery as mentioned. The patient was doing well yesterday until he had the onset of pressure and heavy feeling in his chest. He said he tried to hug his pillow, but it did not help. Ultimately, he went to the emergency room at [place]. He was given aspirin, and the pain gradually resolved. The patient had some borderline EKG changes in the inferior leads. The patient is resting comfortably now. MEDICATIONS: At home included: 1. Aspirin. 2. Metoprolol. 3. Atorvastatin. ALLERGIES: PENICILLIN. SOCIAL HISTORY: No alcohol or tobacco. REVIEW OF SYSTEMS: CONSTITUTIONAL: No significant weight gain or loss. HEENT: Vision, no changes. Hearing, no changes. PULMONARY: No cough or wheezing. GASTROINTESTINAL: No nausea, vomiting, or diarrhea. SKIN: No rashes. NEUROLOGIC: No unilateral weakness or numbness. PSYCHIATRIC: No unusual depression or anxiety. Hematologic: No unusual bruising. GENITOURINARY: No burning with urination. PHYSICAL EXAMINATION: GENERAL: This is a pleasant 72-year-old gentleman, currently resting comfortably. VITAL SIGNS: His blood pressure is 101/65, pulse 70. HEENT: Eyes; sclerae are nonicteric. Mouth; mucous membranes are moist. NECK: Supple. No lymphadenopathy. LUNGS: Clear. No wheezing, rales, or rhonchi. CARDIAC: Normal S1. Normal S2. There is no murmur, rub, or gallop. ABDOMEN: Soft and nontender. No hepatosplenomegaly. EXTREMITIES: Warm and dry. No clubbing or cyanosis. There is no edema. PERTINENT LABORATORY DATA: The troponin level was started at 0.013; then went to 0.10, and this morning, it was 0.513. Cardiac catheterization films were reviewed, revealed that he has had heavily calcified vessels proximally, critical lesion in the proximal LAD, had disease in his circumflex distribution as well, and calcified lesions in the right coronary artery. EKG did show some borderline ST elevation in the inferior leads, 0.5 mm. ASSESSMENT: 1. Recent coronary artery bypass grafting, 3-vessel disease, calcified lesions. 2. Acute coronary syndrome, suspect related to the right coronary artery distribution and the distal circumflex. PLAN: Discussed repeat cardiac catheterization. Discussed risks of stroke, heart attack, iodine allergy, loss of blood supply to leg or kidney, stent thrombosis, stent restenosis. Discussed if the right coronary artery is a problem, may need some type of Rotablator procedure, which would not be done today. The patient understands and wishes to proceed. Job ID: [id number]
[2018-10-17] MEDS ORDERED: Midazolam HCl 2 mg/2 ml Vial ONE (10:24)
[2018-10-17] MEDS ORDERED: Fentanyl 100 MCG/2 ML VIAL ONE (10:24)
[2018-10-17] MEDS ORDERED: Sodium Chloride 0.9% 200 ML IV PRN (11:20)
[2018-10-17] MEDS ORDERED: Acetaminophen/Codeine 30-300mg Tablet PO PRN (11:20)
[2018-10-17] MEDS ORDERED: Iopamidol 370 76% 100 ML VIAL ONE (14:17)
[2018-10-18] MEDS: Sodium Chloride 0.9% 1,000 ML IV SCH (02:07)
[2018-10-18 08:06] VITALS: BP 95/66; TEMP 98.7
[2018-10-18] MEDS ORDERED: Clopidogrel Bisulfate 300 MG TAB PO SCH (08:30)
[2018-10-18] MEDS: Aspirin 81 mg Enteric Coated Tablet PO SCH (09:15)
--- NOTE | 2018-10-18 09:28 | PRG ---
DATE OF SERVICE: 10/18/2018 SUBJECTIVE: Mr. Rivas is doing well today. No further chest pain. He is sitting up in the chair. OBJECTIVE: VITAL SIGNS: Blood pressure 95/66, pulse 66. LUNGS: Clear. CARDIAC: Normal S1, normal S2. ABDOMEN: Soft, nontender. ASSESSMENT: 1. Previous bypass surgery. 2. Status post small type 1 non-ST elevation myocardial infarction, related to a very small non-bypassable, non-stentable side branch of the right coronary. PLAN: 1. He will go on the same medicines that he came in with the addition of Plavix. He will be re-loaded with 300 mg, then 75 mg a day. 2. Nitroglycerin if needed. 3. Other medicines unchanged include metoprolol, aspirin 81 mg a day, atorvastatin. Job ID: [id number]
--- NOTE | 2018-10-18 21:35 | DIS ---
DATE OF ADMISSION: 10/17/2018 DATE OF DISCHARGE: 10/18/2018 PRIMARY CARE PROVIDER: Ambrose Cornejo MD DISCHARGE DIAGNOSIS: Non-ST elevation myocardial infarction type 1. CONDITION OF PATIENT ON THE DAY OF DISCHARGE: Stable. I assessed Mr. Rivas on the day of discharge. He denies any chest pain or shortness of breath. Vital signs are stable. S1 and S2 are heard, regular. Lungs are clear to auscultation bilaterally. DISCHARGE MEDICATIONS: He is being discharged home on Plavix 75 mg daily, in addition to his pre-admission home medications as dictated by Dr. Jensen in history and physical note dated October 17, 2018. CONSULTATIONS DURING THIS HOSPITALIZATION: Cardiology, Dr. Barba. FOLLOWUP: Followup with Dr. Barba on November 01, 2018 at 1:00 p.m. and with [facility] in [place] on October 25, 2018 at 9:[address] Watt on October 20, 2018 at 2:00 p.m. HOSPITAL COURSE: Mr. Rivas is a pleasant 72-year-old gentleman, who was admitted to [facility] on October 17, 2018, for non ST-elevation myocardial infarction. He was seen by Cardiology Service and underwent cardiac catheterization. He was found to have small type [address]-elevation myocardial infarction related to a very small non-bypassable non-stentable side branch of the right coronary artery. He has been cleared for discharge by Cardiology Service. He is being discharged home in a stable condition. Many thanks for allowing me to participate in your patient's care. Please feel free to contact me with any questions or concerns. DISCHARGE DESTINATION: Home. Job ID: [id number]
[2018-10-19] MEDS ORDERED: Clopidogrel Bisulfate 75 MG TAB PO SCH (09:00)
--- NOTE | 2018-10-22 15:15 | EKG ---
Test Reason : Blood Pressure : / mmHG Vent. Rate : 082 BPM Atrial Rate : 082 BPM P-R Int : 168 ms QRS Dur : 086 ms QT Int : 400 ms P-R-T Axes : 046 047 035 degrees QTc Int : 467 ms Normal sinus rhythm Possible Left atrial enlargement Nonspecific T wave abnormality Prolonged QT Abnormal ECG Confirmed by JOSE ANGEL MCCARTY D.O. ([id number]), writer editor MELISSA CAVAZOS ([id number]) on 10/22/2018 3:14:22 PM Referred By: Confirmed By:JOSE ANGEL MCCARTY D.O.
== END 2018-10-18 11:00 | disposition home or self-care (01) ==
LOC: ERS 22:13 → 2SE 10-17 00:34
PROVIDERS: ADMIT Internal Medicine; ATTEND Internal Medicine
PROC: 4A023N7 Measurement of Cardiac Sampling and Pressure, Left Heart, Percutaneous Approach (ICD-10-PCS; principal; 2018-10-16)
PROC: B2151ZZ Fluoroscopy of Left Heart using Low Osmolar Contrast (ICD-10-PCS; 2018-10-16)
DX: I21.4 Non-ST elevation (NSTEMI) myocardial infarction (principal); I25.10 Atherosclerotic heart disease of native coronary artery without angina pectoris; I10 Essential (primary) hypertension; E78.5 Hyperlipidemia, unspecified; Z79.82 Long term (current) use of aspirin; Z79.899 Other long term (current) drug therapy; Z88.0 Allergy status to penicillin; Z95.1 Presence of aortocoronary bypass graft
CPT/HCPCS: 76942; 84484 ×3; 93005; 93455; 93798; 96360; 96361 ×2; 99285; C1769; G0378 ×3; 36415; 99152; 99153; J1644; J2001; J2250; J3010; Q9967